=== PATIENT | female | born 1975 | race Caucasian/White ===

== ENCOUNTER 2021-04-24 10:14 | Emergency (ER) | payer BC, SELFPAY ==
[2021-04-24 10:15] VITALS: BP 126/95; PULSE 93; RESP 18; TEMP 36.8; O2SAT 99; BMI 15.6
--- NOTE | 2021-04-24 10:40 | EKG12_ITS ---
Test Reason : SIDE PAIN Blood Pressure : / mmHG Vent. Rate : 059 BPM Atrial Rate : 059 BPM P-R Int : 182 ms QRS Dur : 074 ms QT Int : 420 ms P-R-T Axes : 073 074 075 degrees QTc Int : 415 ms Sinus bradycardia Otherwise normal ECG Confirmed by JOSE BLANCO, RONNY ([id number]), editorial specialist JULIO MEJÍA ([id number]) on 04/30/2021 10:18:06 AM Referred By: CARMEN Confirmed By:RONNY GARCIA MD
--- NOTE | 2021-04-24 10:40 | RAD_ITS ---
INDICATION: chest pain EXAMINATION/TECHNIQUE: X-RAY - XR Chest 1 View COMPARISON: None. FINDINGS: LINES/DEVICES: None. LUNGS: No consolidation, edema or effusion. No pneumothorax. MEDIASTINUM AND CARDIOVASCULAR STRUCTURES: Cardiac silhouette not enlarged. Central airways and mediastinal contour are unremarkable. BONES AND SOFT TISSUES: Unremarkable. RAD/Chest 1 View (Portable) IMPRESSION: No radiographic evidence of acute cardiopulmonary disease. Electronically Signed: Cody Soto MD at 11:35 EST Tel , Service support ,
--- NOTE | 2021-04-24 10:53 | NURSING ---
NO OLD EKGS
[2021-04-24 10:59] VITALS: O2SAT 98
[2021-04-24 11:18] LABS: Absolute Lymphocyte Count 2.15 X10^3/uL (0.83-4.51); Absolute Neutrophil Count 4.3 X10^3/uL (2.0-7.7); Basophil# 0.03 X10^3/uL; Basophil% 0.4 % (0-1); Eosinophil# 0.09 X10^3/uL; Eosinophils% 1.3 % (0-5); Hematocrit 38.4 % (37-47); Hemoglobin 13.2 g/dL (12.0-15.0); Lymphocyte # 2.15 X10^3/ul (0.83-4.51); Mean Corp Hgb Conc 34.4 g/dL (32-36); Mean Corpuscular Volume 90.1 fL (81-99); Mean Platelet Vol. 10.3 fl (6.2-12.0); Monocyte# 0.38 X10^3/uL; Monocyte% 5.5 % (0-10); NRBC Flagged by Analyzer 0 % (0-5); Neutrophil # 4.27 X10^3/uL (2.7-7.7); Neutrophil % 61.5 % (47-70); Platelet Count 229 K/mm3 (150-450); RBC Distribution Width CV 11.7 % (11.6-14.6); RBC Distribution Width SD 38.3 fl (35.1-43.9); Red Blood Count 4.26 M/mm3 (4.2-5.4); White Blood Count 6.9 K/mm3 (4.4-11.0)
[2021-04-24 11:33] LABS: Anion Gap 7 (5-15); BUN 10 mg/dL (7-18); BUN/Creat Ratio 14.3 RATIO (10-20); Calcium,Total 9.4 mg/dL (8.5-10.1); Chloride 107 mmol/L (98-107); EST Glomerular Filtration Rate 96 mL/min (>60); Est Glom Filt Rate - Afr Amer 117 mL/min (>60); Estimated Creatinine Clearance 73.44 ml/min; Glucose 90 mg/dL (74-106); Potassium 3.5 mmol/L (3.5-5.1); Sodium Level 141 mmol/L (136-145); Troponin-I HS 6 pg/mL (3.0-54.0)
[2021-04-24 12:05] LABS: Bacteria 0 SEEN /hpf (None Seen); Mucous, Urine 0 SEEN /hpf (<or=2+); Squamous Epithelial Cells - UA 0 SEEN /hpf (5-10); White Blood Cells 0 SEEN /hpf (0-5)
--- NOTE | 2021-04-24 12:08 | EX.ED.DYSGE1 ---
HPI History of Present Illness Chief Complaint: Chest Other Narrative Narrative: 45-year-old female presenting with right-sided lower rib and abdominal pain. She states it radiated from the ribs to her abdomen. She states she did not doing anything when this occurred. She states the pain is now resolved. She had no associated symptoms with this pain. She did state it was sharp and very severe. No history of kidney stones. She is not had constipation or diarrhea. She has been eating and drinking normally. Has not had fever, chills, cough. She denies a cardiac history. No history of DVT/PE and no risk factors. PFSH PFS Home Medications NK 04/24/21 [History Last Taken Unknown] Allergy/AdvReac Type Severity Reaction Status Date / Time amoxicillin Allergy Hives Verified 04/24/21 11:02 Penicillins Allergy Hives Verified 04/24/21 11:02 Surgical History Hx of dental cheondoism Social History Smoking Status: Former smoker ROS ROS ED Constitutional Constitutional ED: Denies chills or fever(s) Eyes Eyes: Denies blurry vision or change in vision ENT ENT ED: Denies rhinorrhea or sore throat Cardiovascular Cardiovascular: Reports chest pain; Denies palpitations or racing heartbeat Respiratory/Chest Respiratory/Chest: Denies cough or dyspnea Gastrointestinal Gastrointestinal: Reports abdominal pain; Denies constipation, diarrhea, nausea or vomiting Genitourinary Genitourinary ED: Denies dysuria or hematuria Musculoskeletal Musculoskeletal: Denies arthralgias or myalgias Integumentary Denies rash Neurologic Neurologic: Denies headache(s) or paresthesias EXAM Physical Exam Const Vital Signs: 04/24/21 10:15 04/24/21 10:59 04/24/21 12:46 Temperature 98.2 F Temperature Source Temporal Pulse Rate 93 54 L Respiratory Rate 18 15 Respiratory Effort Normal Non-Labored Blood Pressure 126/95 H 90/53 L Blood Pressure Mean 105 65 Pulse Ox 99 98 99 Oxygen Delivery Method Room Air Room Air Room Air Positive well nourished General Appearance ED: NAD; Negative for pallor HEENT Reports normocephalic, head/scalp atraumatic and moist mucous membranes Eyes PERRL and EOMs intact bilaterally Neck no lymphadenopathy and supple Chest Wall inspection of chest normal and palpation of chest normal Resp normal respiratory effort and clear to auscultation bilaterally Auscultation: Negative for rales, rhonchi or wheezes Cardio regular rate and regular rhythm GI normal to inspection, nondistended, normoactive bowel sounds and non-distended Auscultation: normoactive bowel sounds Palpation: soft Narrative: Deferred Back/Spine no CVA tenderness Extremity normal to inspection General Extremety ED: Negative for edema or tenderness General Extremity: Negative for edema Neuro oriented x3 and CN's II-XII intact bilaterally Sensorium / Orientation: alert Motor Exam: strength 5/5 throughout Psych mental status grossly normal Attitude: No agitated Skin no rashes or lesions noted and no wounds General Skin Exam: Negative for jaundice or pallor MDM MDM MDM Narrative Medical decision making narrative: Patient presenting with right-sided flank pain she is describing it is from the anterior ribs on the right to the right upper abdomen. She denies any trauma. On exam she does not have any tenderness to palpation. No CVA tenderness. I did obtain an EKG which on my interpretation shows a sinus bradycardia with a ventricular rate of 59 bpm without sign of ischemic change. Patient is PERC negative. Chest x-ray on my interpretation shows no acute cardiopulmonary process and the radiologist does agree. CBC shows no leukocytosis and her hemoglobin and hematocrit are stable. Renal function and electrolytes are normal. I did obtain a urinalysis out of consideration for possible kidney stone. There is some occult blood in the urine, however after speaking with the patient she states that she might be having an early menstrual period and she noted some blood when she was wiping. I did obtain a CT of the abdomen pelvis without contrast and there does not appear to be any identified kidney stone. Radiologist does note that there is a bone island at L2 which will require follow-up but this is not emergent. Patient will need to follow-up outpatient for this. I do not think this because of her pain. Given this I feel the patient is safe to be discharged home. Patient declines any pain medication for home. She is given return precautions. Impression: 1. Right flank pain Lab Data Attestation: I reviewed the patient's lab results. Labs: Laboratory Results - last 24 hr 04/24/21 04/24/21 04/24/21 11:00 11:00 12:00 WBC 6.9 RBC 4.26 Hgb 13.2 Hct 38.4 MCV 90.1 MCH 31.0 MCHC 34.4 RDW Std Deviation 38.3 RDW Coeff of Gely 11.7 Plt Count 229 MPV 10.3 Immature Gran % (Auto) 0.300 Neut % (Auto) 61.5 Lymph % (Auto) 31.0 [place] % (Auto) 5.5 Eos % (Auto) 1.3 Baso % (Auto) 0.4 Absolute Neuts (auto) 4.3 Absolute Lymphs (auto) 2.15 Nucleated RBC % 0 Sodium 141 Potassium 3.5 Chloride 107 Carbon Dioxide 27.0 Anion Gap 7 BUN 10 Creatinine 0.70 Estim Creat Clear Calc 73.44 Est GFR (MDRD) Af Amer 117 Est GFR (MDRD) Non-Af 96 BUN/Creatinine Ratio 14.3 Glucose 90 Calcium 9.4 Troponin I High Sens 6 Urine Color Yellow Urine Clarity Clear Urine pH 6.0 Ur Specific [place] 1.010 Urine Protein Negative Urine Glucose (UA) Normal Urine Ketones Negative Urine Occult Blood 150 H Urine Nitrite Negative Urine Bilirubin Negative Urine Urobilinogen Normal Ur Leukocyte Esterase 25 H Urine RBC 0-5 SEEN Urine WBC 0 SEEN Ur Squamous Epith Cells 0 SEEN Urine Bacteria 0 SEEN Urine Mucus 0 SEEN Radiography Diagnostic Testing: Clinical Impression(s) from Imaging Studies Chest X-Ray 04/24/21 10:40 IMPRESSION: No radiographic evidence of acute cardiopulmonary disease. Electronically Signed: Cody Soto MD at 11:35 EST Tel , Service support , Abdomen/Pelvis CT 04/24/21 12:45 IMPRESSION: No evidence of obstructing renal stones. No evidence of obstructive uropathy. Abundance of stool in the large bowel. A 1 cm ovoid sclerotic lesion is visualized in the right lateral aspect of the upper L2 vertebral body, this could represent a bone island however cannot rule out of an osteoid lesion would recommend further evaluation with an MRI. Note is made that there are 6 nonrib bearing lumbar vertebral bodies seen. Electronically Signed: Cody Soto MD at 13:24 EST Tel , Service support , Discharge Plan Triage Chief Complaint: Chest Other ED Provider: Curt Her Dx/Rx/DC Orders Instructions: ED Flank Pain, Uncertain Cause Prescriptions: No Action NK RF: 0 Primary Care Provider: Care Physician,No Primary Referrals: Care Physician,No Primary [Primary Care Provider] - Disposition Disposition: Home, Self Care
[2021-04-24 12:13] LABS: Color, Urine Yellow (Yellow); Glucose, Dipstick Normal (Normal); Ketone-Dipstick Negative (Negative); Leukocyte Esterase-Dipstick 25 /ul (Negative); Nitrite-Dipstick Negative (Negative); Occult Blood-Urine 150 /ul (Negative); Protein-Dipstick Negative (Negative); Urine Bilirubin Dipstick Negative (Negative); Urine Clarity Clear (Clear); Urine Urobilinogen Normal (Normal)
[2021-04-24 12:45] LABS: Red Blood Cells-Urine 0-5 SEEN /hpf (0-5)
--- NOTE | 2021-04-24 12:45 | CT_ITS ---
INDICATION: right flank pain EXAMINATION: CT ABDOMEN AND PELVIS WITHOUT CONTRAST - CT Abdomen And Pelvis W/O Contrast Injection TECHNIQUE: Helically acquired images were obtained of the abdomen and pelvis without oral or IV contrast. A radiation dose optimization technique was used for this scan. IV Contrast dosage and agent: None. Oral contrast: None. COMPARISON: None. FINDINGS: LOWER CHEST: Lung bases are clear. No cardiomegaly or pericardial effusion. LIVER: Homogeneous. No focal mass. GALLBLADDER AND BILIARY TREE: No calcified gallstones. No gallbladder distension or wall edema. No intra- or extrahepatic biliary ductal dilation. PANCREAS: No focal cystic or solid mass. SPLEEN: Normal size without focal cystic or solid mass. ADRENAL GLANDS: No nodules. KIDNEYS AND URETERS: Normal renal size and position. No hydronephrosis. A subtle 1.5 mm calcification is visualized in the midpole of the right kidney, no evidence of obstructive uropathy is seen. Ureters are unremarkable in size no evidence of passed stone is seen. PERITONEUM: No ascites or free air. No other fluid collection. BOWEL: The appendix is not optimally visualized however there is no evidence of acute appendicitis. No stomach or bowel distension. No focal inflammatory change. Abundance of stool is visualized in the large bowel. LYMPH NODES: No enlarged mesenteric or retroperitoneal lymph nodes. VESSELS: Aorta is non-dilated. URINARY BLADDER: Unremarkable. REPRODUCTIVE ORGANS: Anteverted anteflexed uterus is unremarkable. No pelvic masses. No evidence of free fluid in the pelvis. ABDOMINAL WALL: No discrete abdominal or pelvic wall hernia. BONES: A 1 cm ovoid sclerotic lesion is visualized in the right lateral aspect of the upper L2 vertebral body, note is made that there are 6 nonrib bearing lumbar vertebral bodies seen. Seen on axial series 2 image 21, sagittal series 602 image 77 and on coronal series [address]/Abdomen/Pelvis without Cont IMPRESSION: No evidence of obstructing renal stones. No evidence of obstructive uropathy. Abundance of stool in the large bowel. A 1 cm ovoid sclerotic lesion is visualized in the right lateral aspect of the upper L2 vertebral body, this could represent a bone island however cannot rule out of an osteoid lesion would recommend further evaluation with an MRI. Note is made that there are 6 nonrib bearing lumbar vertebral bodies seen. Electronically Signed: Cody Soto MD at 13:24 EST Tel , Service support ,
[2021-04-24 12:46] VITALS: BP 90/53; PULSE 54; RESP 15; O2SAT 99
[2021-04-24 14:52] VITALS: BP 118/82; PULSE 87; RESP 15; O2SAT 99
== END 2021-04-24 14:53 | disposition home or self-care (01) ==
PROVIDERS: Emergency Provider Student in an Organized Health Care Education/Training Program
DX: R10.9 Unspecified abdominal pain (principal); R00.1 Bradycardia, unspecified; Z87.891 Personal history of nicotine dependence
CPT/HCPCS: 71045; 74176; 80048; 81001; 84484; 85025; 93005; 99284; A4216